=== PATIENT | male | born 2000 ===

== ENCOUNTER 2021-11-10 02:17 | Emergency (ER) ==
[2021-11-10] MEDS ORDERED: Ondansetron ODT 4 MG TAB ONE ×2 (02:45→02:48)
== END 2021-11-10 03:48 | disposition home or self-care (01) ==
LOC: ERS 02:17
DX: R11.10 Vomiting, unspecified (principal); F10.929 Alcohol use, unspecified with intoxication, unspecified
CPT/HCPCS: 99284; Q0162